=== PATIENT | male | born 1995 | race Caucasian/White ===

== ENCOUNTER 2020-08-10 19:58 | Inpatient (IN) ==
[2020-08-10] MEDS ORDERED: SODIUM CHLORIDE 0.9% 500 ML IV STA (20:23)
[2020-08-10 21:11] LABS: Basophils % 0.3 % (0.0-0.8); Eosinophils % 0.1 % (0.00-10.9); Hematocrit 37.9 VOL% (42.0-52.0); Hemoglobin 12.5 GM/DL (14.0-18.0); Immature Granulocytes % 0.5 %; Immature Granulocytes Absolute 0.08 #; Lymphocytes # 2.2 10*3/uL (1.4-4.0); Lymphocytes % 14.6 % (21.2-54.2); Mean Corpuscular Volume 82.4 FL (87-102); Mean Platelet Volume 9.8 FL (9.6-12.0); Monocytes % 8.6 % (1.7-12.7); Neutrophils % 75.9 % (38.7-73.9); Platelet Count 450 T/CUMM (130-400); Red Cell Distribution Width 12.6 % (9.3-17.3); White Blood Count 15.3 T/CUMM (4-12)
[2020-08-10 21:38] LABS: Alanine Aminotransferase 30 U/L (16-61); Albumin 3.3 G/DL (3.4-5.0); Alkaline Phosphatase 96 U/L (45-117); Aspartate Amino Transferase 32 U/L (0-37); Blood Urea Nitrogen 22 MG/DL (7-18); Calcium 9.6 MG/DL (8.5-10.1); Carbon Dioxide 26 MMOL/L (21-32); Estimated Glom Filtration Rate 88 ML/MIN; Free T4 (Free Thyroxine) 1.42 NG/DL (0.76-1.46); Glucose 128 MG/DL (74-106); Osmolality,Calculated 272.2 MOS/KG (273-304); Potassium 3.6 MMOL/L (3.5-5.1); Sodium 134 MMOL/L (136-145); Total Protein 8.7 G/DL (6.4-8.2); Troponin I < 0.015 NG/ML (0.00-0.045)
[2020-08-10 22:04] LABS: Barbiturates Screen,Urine Negative (Negative); Benzodiazepines Screen,Urine Negative (Negative); Cannabinoid Screen,Urine Positive (Negative); Opiate Screen,Urine Positive (Negative); Phencyclidine Screen,Urine Negative (Negative)
[2020-08-10] MEDS ORDERED: PIPERACILLIN/TAZOBACTAM 3,375 MG in SODIUM CHLORIDE 0.9% 100 ML IV STA (22:08)
[2020-08-10 22:10] LABS: Bilirubin,Urine Negative (Negative); Blood, Urine Negative (Negative); Glucose,Urine (UA) Negative (Negative); Hyaline Casts,Urine 84 /LPF (0-3); Ketones,Urine Negative (Negative); Mucus,Urine Occasional /LPF (Occasional); Nitrite,Urine Negative (Negative); Protein,Urine Negative; RBC,Urine 1 /HPF (0-4); Squamous Epithelial Cell,Urine Occasional /HPF (0-10); Urine Appearance CLEAR (Clear); Urine Color Yellow (Yellow); WBC,Urine 2 /HPF (0-6)
[2020-08-10] MEDS ORDERED: SODIUM CHLORIDE 0.9% 1,000 ML IV STA (22:14)
[2020-08-10] MEDS ORDERED: DEXTROSE 50% 25 GM/50 ML VIAL IV PRN (23:11)
[2020-08-10] MEDS ORDERED: SIMETHICONE CHEW 125 MG TABLET PO PRN (23:11)
[2020-08-10] MEDS ORDERED: ALUMINUM/MAGNES/SIMETH MAX STR 30 ML UDCUP PO PRN (23:11)
[2020-08-10] MEDS ORDERED: GLUCAGON 1 MG VIAL IM PRN (23:11)
[2020-08-10] MEDS ORDERED: ONDANSETRON 4 MG/2 ML VIAL IV PRN (23:11)
[2020-08-10] MEDS ORDERED: LACTULOSE 20 GM/30 ML UDCUP PO PRN (23:11)
[2020-08-10] MEDS ORDERED: CALCIUM CARBONATE CHEW 500 MG TABLET PO PRN (23:11)
[2020-08-10] MEDS: ENOXAPARIN 40 MG/0.4 ML SYRINGE SUBCUT SCH (23:39)
[2020-08-11] MEDS: SODIUM CHLORIDE 0.9% 1,000 ML IV SCH ×4 (00:50→23:20)
[2020-08-11] MEDS: PANTOPRAZOLE 40 MG TABLET PO SCH (08:09)
[2020-08-11] MEDS: CLINDAMYCIN INJ 600 MG in PREMIX 1 EACH IV SCH ×3 (09:36→23:20)
[2020-08-11] MEDS: buPROPion XL 150 MG TABLET PO SCH (09:41)
[2020-08-11 10:50] LABS: Platelet Count 375 T/CUMM (130-400); Red Cell Distribution Width 12.6 % (9.3-17.3)
[2020-08-11 10:54] LABS: Basophils % 0.2 % (0.0-0.8); Eosinophils # 0.1 10*3/uL (0.0-0.87); Eosinophils % 1.4 % (0.00-10.9); Hematocrit 33.2 VOL% (42.0-52.0); Immature Granulocytes % 0.3 %; Immature Granulocytes Absolute 0.03 #; Lymphocytes # 2.1 10*3/uL (1.4-4.0); Lymphocytes % 23.1 % (21.2-54.2); Mean Corpuscular HGB Conc 31.3 GM/DL (32-36); Mean Corpuscular Volume 85.6 FL (87-102); Mean Platelet Volume 9.8 FL (9.6-12.0); Monocytes % 8.2 % (1.7-12.7); Neutrophils % 66.8 % (38.7-73.9); Red Blood Count 3.88 MC/CUMM (3.8-5.5)
[2020-08-11 10:55] LABS: Hemoglobin 10.4 GM/DL (14.0-18.0); White Blood Count 9.1 T/CUMM (4-12)
[2020-08-11 11:15] LABS: Albumin 2.6 G/DL (3.4-5.0); Bilirubin,Total 0.5 MG/DL (0.2-1.0); Calcium 8.3 MG/DL (8.5-10.1); Osmolality,Calculated 277.7 MOS/KG (273-304); Potassium 3.8 MMOL/L (3.5-5.1); Total Protein 6.1 G/DL (6.4-8.2)
[2020-08-11 11:31] LABS: Hypochromasia Slight; Microcytosis Slight; Platelet Estimate Adequate
[2020-08-11] MEDS: ACETAMINOPHEN 325 MG TABLET PO PRN (15:05)
[2020-08-11] MEDS: ENOXAPARIN 40 MG/0.4 ML SYRINGE SUBCUT SCH (20:28)
[2020-08-11] MEDS: ATORVASTATIN 20 MG TABLET PO SCH (20:28)
[2020-08-11] MEDS: MORPHINE 4 MG/1 ML VIAL IV PRN (20:28)
[2020-08-12] MEDS: MORPHINE 4 MG/1 ML VIAL IV PRN (00:30)
[2020-08-12] MEDS: ZALEPLON 5 MG CAPSULE PO PRN (03:00)
[2020-08-12] MEDS: LEVOTHYROXINE 100 MCG TABLET PO SCH (06:05)
[2020-08-12 06:22] LABS: Basophils % 0.3 % (0.0-0.8); Eosinophils # 0.1 10*3/uL (0.0-0.87); Eosinophils % 0.5 % (0.00-10.9); Hematocrit 33.4 VOL% (42.0-52.0); Hemoglobin 10.4 GM/DL (14.0-18.0); Immature Granulocytes % 0.6 %; Immature Granulocytes Absolute 0.07 #; Lymphocytes # 1.8 10*3/uL (1.4-4.0); Lymphocytes % 15.4 % (21.2-54.2); Mean Corpuscular HGB Conc 31.1 GM/DL (32-36); Mean Platelet Volume 9.9 FL (9.6-12.0); Monocytes % 7.6 % (1.7-12.7); Neutrophils % 75.6 % (38.7-73.9); Platelet Count 382 T/CUMM (130-400); Red Blood Count 3.84 MC/CUMM (3.8-5.5); Red Cell Distribution Width 12.6 % (9.3-17.3); White Blood Count 11.8 T/CUMM (4-12)
[2020-08-12 07:03] LABS: Calcium 8.8 MG/DL (8.5-10.1); Osmolality,Calculated 268.2 MOS/KG (273-304)
[2020-08-12] MEDS: CLINDAMYCIN INJ 600 MG in PREMIX 1 EACH IV SCH ×2 (08:41→16:33)
[2020-08-12] MEDS: buPROPion XL 150 MG TABLET PO SCH (08:42)
[2020-08-12] MEDS: PANTOPRAZOLE 40 MG TABLET PO SCH (08:42)
[2020-08-12] MEDS: SODIUM CHLORIDE 0.9% 1,000 ML IV SCH ×2 (09:31→16:34)
[2020-08-12] MEDS: METHYLPHENIDATE 5 MG TABLET PO SCH ×2 (11:55→11:56)
[2020-08-12] MEDS: ACETAMINOPHEN 325 MG TABLET PO PRN (12:16)
[2020-08-12] MEDS: ATORVASTATIN 20 MG TABLET PO SCH (21:19)
[2020-08-12] MEDS: ENOXAPARIN 40 MG/0.4 ML SYRINGE SUBCUT SCH (21:19)
[2020-08-13] MEDS: CLINDAMYCIN INJ 600 MG in PREMIX 1 EACH IV SCH ×3 (00:39→16:35)
[2020-08-13] MEDS: LEVOTHYROXINE 100 MCG TABLET PO SCH (05:35)
[2020-08-13] MEDS: SODIUM CHLORIDE 0.9% 1,000 ML IV SCH ×4 (05:48→16:37)
[2020-08-13 06:05] LABS: Basophils % 0.3 % (0.0-0.8); Eosinophils # 0.1 10*3/uL (0.0-0.87); Eosinophils % 0.9 % (0.00-10.9); Hematocrit 32.2 VOL% (42.0-52.0); Immature Granulocytes % 0.5 %; Immature Granulocytes Absolute 0.05 #; Lymphocytes % 19.4 % (21.2-54.2); Mean Corpuscular HGB Conc 31.1 GM/DL (32-36); Mean Corpuscular Volume 86.6 FL (87-102); Mean Platelet Volume 9.8 FL (9.6-12.0); Monocytes % 7.8 % (1.7-12.7); Neutrophils % 71.1 % (38.7-73.9); Platelet Count 374 T/CUMM (130-400); Red Blood Count 3.72 MC/CUMM (3.8-5.5); Red Cell Distribution Width 12.6 % (9.3-17.3); White Blood Count 10.5 T/CUMM (4-12)
[2020-08-13 06:30] LABS: Calcium 8.9 MG/DL (8.5-10.1); Osmolality,Calculated 271.8 MOS/KG (273-304)
[2020-08-13] MEDS: buPROPion XL 150 MG TABLET PO SCH (09:45)
[2020-08-13] MEDS: PANTOPRAZOLE 40 MG TABLET PO SCH (09:45)
[2020-08-13] MEDS: ACETAMINOPHEN 325 MG TABLET PO PRN (12:37)
[2020-08-13 17:54] LABS: Cyclic Citrull Peptide Interp Negative
[2020-08-13] MEDS: MORPHINE 4 MG/1 ML VIAL IV PRN (21:34)
[2020-08-13] MEDS: ENOXAPARIN 40 MG/0.4 ML SYRINGE SUBCUT SCH (21:36)
[2020-08-13] MEDS: ATORVASTATIN 20 MG TABLET PO SCH (21:37)
[2020-08-14] MEDS: SODIUM CHLORIDE 0.9% 1,000 ML IV SCH ×2 (01:41→09:24)
[2020-08-14] MEDS: CLINDAMYCIN INJ 600 MG in PREMIX 1 EACH IV SCH ×3 (01:42→15:49)
[2020-08-14] MEDS: MORPHINE 4 MG/1 ML VIAL IV PRN (05:29)
[2020-08-14] MEDS: LEVOTHYROXINE 100 MCG TABLET PO SCH (06:30)
[2020-08-14 06:54] LABS: Basophils % 0.3 % (0.0-0.8); Eosinophils # 0.1 10*3/uL (0.0-0.87); Eosinophils % 0.9 % (0.00-10.9); Hematocrit 33.9 VOL% (42.0-52.0); Hemoglobin 10.8 GM/DL (14.0-18.0); Immature Granulocytes % 0.5 %; Immature Granulocytes Absolute 0.05 #; Lymphocytes # 2.3 10*3/uL (1.4-4.0); Lymphocytes % 21.6 % (21.2-54.2); Mean Corpuscular HGB Conc 31.9 GM/DL (32-36); Mean Corpuscular Volume 85.2 FL (87-102); Monocytes % 7.8 % (1.7-12.7); Neutrophils % 68.9 % (38.7-73.9); Platelet Count 426 T/CUMM (130-400); Red Blood Count 3.98 MC/CUMM (3.8-5.5); Red Cell Distribution Width 12.6 % (9.3-17.3); White Blood Count 10.4 T/CUMM (4-12)
[2020-08-14 07:01] LABS: Calcium 9.3 MG/DL (8.5-10.1); Osmolality,Calculated 273.8 MOS/KG (273-304); Potassium 4.2 MMOL/L (3.5-5.1)
[2020-08-14] MEDS: PANTOPRAZOLE 40 MG TABLET PO SCH (09:25)
[2020-08-14] MEDS: buPROPion XL 150 MG TABLET PO SCH (09:25)
[2020-08-14] MEDS: ATORVASTATIN 20 MG TABLET PO SCH (21:30)
[2020-08-14] MEDS: ENOXAPARIN 40 MG/0.4 ML SYRINGE SUBCUT SCH (21:30)
[2020-08-14] MEDS: ZALEPLON 5 MG CAPSULE PO PRN (21:31)
[2020-08-15] MEDS: ACETAMINOPHEN 325 MG TABLET PO PRN (00:07)
[2020-08-15 04:59] LABS: Basophils % 0.3 % (0.0-0.8); Eosinophils # 0.2 10*3/uL (0.0-0.87); Eosinophils % 2.5 % (0.00-10.9); Hematocrit 35.2 VOL% (42.0-52.0); Immature Granulocytes % 0.4 %; Immature Granulocytes Absolute 0.04 #; Lymphocytes # 2.5 10*3/uL (1.4-4.0); Lymphocytes % 27.6 % (21.2-54.2); Mean Corpuscular HGB Conc 31.3 GM/DL (32-36); Mean Corpuscular Volume 85.4 FL (87-102); Mean Platelet Volume 9.8 FL (9.6-12.0); Neutrophils % 61.2 % (38.7-73.9); Platelet Count 531 T/CUMM (130-400); Red Blood Count 4.12 MC/CUMM (3.8-5.5); Red Cell Distribution Width 12.5 % (9.3-17.3); White Blood Count 9.1 T/CUMM (4-12)
[2020-08-15 05:24] LABS: Osmolality,Calculated 277.7 MOS/KG (273-304); Potassium 4.4 MMOL/L (3.5-5.1)
[2020-08-15] MEDS: LEVOTHYROXINE 100 MCG TABLET PO SCH (05:53)
[2020-08-15 06:21] LABS: Eosinophils 3 % (0-10); Lymphocytes 38 % (20-55); Segmented Neutrophils 58 % (50-85); Total Cells Counted 100
[2020-08-15 06:22] LABS: Atypical Lymphocytes Few; Platelet Estimate Adequate; Polychromasia Few; Reactive Lymphocytes Few
[2020-08-15] MEDS: CLINDAMYCIN INJ 600 MG in PREMIX 1 EACH IV SCH ×3 (10:03→16:05)
[2020-08-15] MEDS: buPROPion XL 150 MG TABLET PO SCH (10:03)
[2020-08-15] MEDS: PANTOPRAZOLE 40 MG TABLET PO SCH (10:04)
[2020-08-15] MEDS: methylPREDNISolone SOD SUC 40 MG/1 ML VIAL IV SCH ×2 (11:11→21:12)
[2020-08-15] MEDS: ENOXAPARIN 40 MG/0.4 ML SYRINGE SUBCUT SCH (21:17)
[2020-08-15] MEDS: ZALEPLON 5 MG CAPSULE PO PRN (21:19)
[2020-08-15] MEDS: ATORVASTATIN 20 MG TABLET PO SCH (21:19)
[2020-08-16] MEDS: CLINDAMYCIN INJ 600 MG in PREMIX 1 EACH IV SCH ×3 (00:43→16:48)
[2020-08-16] MEDS: LEVOTHYROXINE 100 MCG TABLET PO SCH (05:56)
[2020-08-16 06:43] LABS: Basophils % 0.1 % (0.0-0.8); Hematocrit 40.1 VOL% (42.0-52.0); Hemoglobin 12.5 GM/DL (14.0-18.0); Immature Granulocytes % 0.5 %; Immature Granulocytes Absolute 0.07 #; Lymphocytes # 1.2 10*3/uL (1.4-4.0); Lymphocytes % 9.4 % (21.2-54.2); Mean Corpuscular HGB Conc 31.2 GM/DL (32-36); Mean Platelet Volume 9.9 FL (9.6-12.0); Platelet Count 753 T/CUMM (130-400); Red Blood Count 4.72 MC/CUMM (3.8-5.5); Red Cell Distribution Width 12.3 % (9.3-17.3); White Blood Count 12.8 T/CUMM (4-12)
[2020-08-16 07:23] LABS: Calcium 9.8 MG/DL (8.5-10.1); Osmolality,Calculated 274.2 MOS/KG (273-304); Potassium 4.5 MMOL/L (3.5-5.1)
[2020-08-16 07:38] LABS: Sedimentation Rate-Westergren 11 MM/HR (0-15)
[2020-08-16] MEDS: methylPREDNISolone SOD SUC 40 MG/1 ML VIAL IV SCH ×2 (11:00→20:23)
[2020-08-16] MEDS: buPROPion XL 150 MG TABLET PO SCH (11:01)
[2020-08-16] MEDS: PANTOPRAZOLE 40 MG TABLET PO SCH (11:01)
[2020-08-16] MEDS: ATORVASTATIN 20 MG TABLET PO SCH (20:21)
[2020-08-16] MEDS: ZALEPLON 5 MG CAPSULE PO PRN (20:22)
[2020-08-16] MEDS: ENOXAPARIN 40 MG/0.4 ML SYRINGE SUBCUT SCH (20:23)
[2020-08-17] MEDS: CLINDAMYCIN INJ 600 MG in PREMIX 1 EACH IV SCH ×3 (00:30→16:30)
[2020-08-17 05:07] LABS: Basophils % 0.1 % (0.0-0.8); Hematocrit 39.6 VOL% (42.0-52.0); Hemoglobin 12.7 GM/DL (14.0-18.0); Immature Granulocytes % 0.7 %; Immature Granulocytes Absolute 0.11 #; Lymphocytes # 1.7 10*3/uL (1.4-4.0); Mean Corpuscular HGB Conc 32.1 GM/DL (32-36); Mean Corpuscular Volume 82.3 FL (87-102); Mean Platelet Volume 10.3 FL (9.6-12.0); Neutrophils % 86.2 % (38.7-73.9); Platelet Count 828 T/CUMM (130-400); Red Blood Count 4.81 MC/CUMM (3.8-5.5); Red Cell Distribution Width 12.3 % (9.3-17.3); White Blood Count 16.6 T/CUMM (4-12)
[2020-08-17 05:21] LABS: Calcium 9.4 MG/DL (8.5-10.1); Osmolality,Calculated 283.8 MOS/KG (273-304); Potassium 4.4 MMOL/L (3.5-5.1)
[2020-08-17] MEDS: LEVOTHYROXINE 100 MCG TABLET PO SCH (06:05)
[2020-08-17 07:36] LABS: Sedimentation Rate-Westergren 21 MM/HR (0-15)
[2020-08-17] MEDS: methylPREDNISolone SOD SUC 40 MG/1 ML VIAL IV SCH ×2 (09:37→20:33)
[2020-08-17] MEDS: PANTOPRAZOLE 40 MG TABLET PO SCH (09:37)
[2020-08-17] MEDS: buPROPion XL 150 MG TABLET PO SCH (09:37)
[2020-08-17 09:39] LABS: Alanine Aminotransferase 108 U/L (16-61); Alkaline Phosphatase 117 U/L (45-117); Aspartate Amino Transferase 63 U/L (0-37); Bilirubin,Direct < 0.100 MG/DL (0.0-0.20); Bilirubin,Indirect 0.3 MG/DL (0.0-1.0); Bilirubin,Total < 0.39 MG/DL (0.2-1.0); Total Protein 8.4 G/DL (6.4-8.2)
[2020-08-17 14:26] LABS: Parathyroid Hormone Intact 35.7 PG/ML (18.4-80.1)
[2020-08-17] MEDS: ATORVASTATIN 20 MG TABLET PO SCH (20:33)
[2020-08-17] MEDS: ENOXAPARIN 40 MG/0.4 ML SYRINGE SUBCUT SCH (20:33)
[2020-08-17 21:24] LABS: Hepatitis B Core IgM Quant < 0.05 Index; Hepatitis B Surface Ag Quant < 0.10 Index; Hepatitis B Surface Ag Result Non-Reactive (NonReactive); Hepatitis C Virus Ab Result Non-Reactive (NonReactive)
[2020-08-18] MEDS: CLINDAMYCIN INJ 600 MG in PREMIX 1 EACH IV SCH ×3 (00:11→15:45)
[2020-08-18 05:57] LABS: Basophils % 0.2 % (0.0-0.8); Hematocrit 40.7 VOL% (42.0-52.0); Hemoglobin 12.9 GM/DL (14.0-18.0); Immature Granulocytes % 1.7 %; Immature Granulocytes Absolute 0.26 #; Lymphocytes # 1.7 10*3/uL (1.4-4.0); Lymphocytes % 10.5 % (21.2-54.2); Mean Corpuscular HGB Conc 31.7 GM/DL (32-36); Mean Corpuscular Volume 82.6 FL (87-102); Monocytes % 4.3 % (1.7-12.7); Neutrophils % 83.3 % (38.7-73.9); Platelet Count 796 T/CUMM (130-400); Red Blood Count 4.93 MC/CUMM (3.8-5.5); Red Cell Distribution Width 12.4 % (9.3-17.3); White Blood Count 15.7 T/CUMM (4-12)
[2020-08-18 06:08] LABS: Calcium 9.1 MG/DL (8.5-10.1); Osmolality,Calculated 288.7 MOS/KG (273-304); Potassium 4.4 MMOL/L (3.5-5.1)
[2020-08-18] MEDS: LEVOTHYROXINE 100 MCG TABLET PO SCH (06:29)
[2020-08-18 08:14] LABS: Total Protein (Chem) 8.7 G/DL (6.4-8.3)
[2020-08-18] MEDS: PANTOPRAZOLE 40 MG TABLET PO SCH (08:26)
[2020-08-18] MEDS: buPROPion XL 150 MG TABLET PO SCH (08:26)
[2020-08-18] MEDS: methylPREDNISolone SOD SUC 40 MG/1 ML VIAL IV SCH ×2 (08:26→20:23)
[2020-08-18 09:11] LABS: Albumin (SPE) 4.6 G/DL (3.2-5.3); Albumin (SPE) Rel % 52.5 %; Alpha 1 (SPE) 0.2 G/DL (0.1-0.4); Alpha 1 (SPE) Rel % 2.7 %; Alpha 2 (SPE) 1.3 G/DL (0.4-1.0); Alpha 2 (SPE) Rel % 15.5 %; Beta (SPE) 1.1 G/DL (0.5-1.1); Beta (SPE) Rel % 12.4 %; Gamma (SPE) 1.5 G/DL (0.7-1.7); Gamma (SPE) Rel % 16.9 %
[2020-08-18] MEDS: amLODIPine 5 MG TABLET PO SCH (15:04)
[2020-08-18] MEDS: ATORVASTATIN 20 MG TABLET PO SCH (20:22)
[2020-08-18] MEDS: ENOXAPARIN 40 MG/0.4 ML SYRINGE SUBCUT SCH (20:22)
[2020-08-19 04:20] LABS: Basophils % 0.2 % (0.0-0.8); Hematocrit 41.6 VOL% (42.0-52.0); Hemoglobin 13.2 GM/DL (14.0-18.0); Immature Granulocytes % 2.1 %; Immature Granulocytes Absolute 0.38 #; Lymphocytes # 2.5 10*3/uL (1.4-4.0); Lymphocytes % 13.4 % (21.2-54.2); Mean Corpuscular HGB Conc 31.7 GM/DL (32-36); Mean Corpuscular Volume 82.9 FL (87-102); Mean Platelet Volume 9.7 FL (9.6-12.0); Monocytes % 5.3 % (1.7-12.7); Platelet Count 795 T/CUMM (130-400); Red Blood Count 5.02 MC/CUMM (3.8-5.5); Red Cell Distribution Width 12.5 % (9.3-17.3); White Blood Count 18.3 T/CUMM (4-12)
[2020-08-19 04:38] LABS: Calcium 9.5 MG/DL (8.5-10.1); Osmolality,Calculated 283.1 MOS/KG (273-304); Potassium 4.4 MMOL/L (3.5-5.1)
[2020-08-19] MEDS: LEVOTHYROXINE 100 MCG TABLET PO SCH (06:28)
[2020-08-19] MEDS: amLODIPine 5 MG TABLET PO SCH (08:34)
[2020-08-19] MEDS: PANTOPRAZOLE 40 MG TABLET PO SCH (08:34)
[2020-08-19] MEDS: buPROPion XL 150 MG TABLET PO SCH (08:34)
[2020-08-19] MEDS: methylPREDNISolone SOD SUC 40 MG/1 ML VIAL IV SCH (08:35)
[2020-08-19 11:19] VITALS: BP 165/97
[2020-08-20 14:36] LABS: Ehrlichia Chaffeensis (HME)IgG <1:64 titer (<1:64)
== END 2020-08-19 14:20 | disposition home or self-care (01) | DRG 554 ==
LOC: N.EDINP 19:58 → N.ED 19:58 → N.2E 23:45 → SUATTDRO 08-12 10:42
PROVIDERS: ADMIT Internal Medicine; ATTEND Internal Medicine Geriatric Medicine